=== PATIENT | female | born 1990 | race Caucasian/White ===

== ENCOUNTER 2017-01-03 20:59 | Emergency (ER) | payer MEDICARE, MEDICAID ==
[2017-01-03 21:07] VITALS: BP 129/72; PULSE 68; RESP 16; TEMP 97.2; O2SAT 99
[2017-01-03 21:45] LABS: BASO % 0.7 % (0.0-2.0); EOS # 0.2 K/uL (0.0-0.7); EOS % 5.5 % (0.0-4.0); HEMATOCRIT 37.7 % (34.0-47.0); LYMPH # 1.6 K/uL (1.0-4.3); LYMPH % 37.4 % (20.0-40.0); MEAN CELL VOLUME 90.5 fL (81.0-99.0); MEAN CORPUSCULAR HEMOGLOBIN 29.8 pg (27.0-31.0); MEAN PLATELET VOLUME 11.8 fL (7.2-11.7); MONO # 0.4 K/uL (0.0-0.8); MONO % 9.4 % (0.0-10.0); RED CELL DISTRIBUTION WIDTH 13.1 % (11.5-14.5); WHITE BLOOD COUNT 4.3 K/uL (4.8-10.8)
[2017-01-03 21:59] LABS: CHLORIDE 101 mmol/L (98-107); POTASSIUM 3.8 mmol/L (3.6-5.2); SODIUM 141 mmol/L (132-148)
[2017-01-03 22:01] LABS: ALB/GLOB RATIO 1.6 (1.0-2.1); ALKALINE PHOSPHATASE 43 U/L (38-126); AST/SGOT 31 U/L (14-36); BILIRUBIN,TOTAL 0.5 mg/dL (0.2-1.3); CARBON DIOXIDE 23 mmol/L (22-30); GFR AFRICAN-AMERICAN > 60
[2017-01-03 22:02] LABS: ALCOHOL SERUM < 10 mg/dl (0-10); ALT/SGPT 16 U/L (9-52); BLOOD UREA NITROGEN 10 mg/dL (7-17); CALCIUM 8.2 mg/dl (8.6-10.4); GLUCOSE,RANDOM 93 mg/dL (65-105)
--- NOTE | 2017-01-03 22:04 | C.PDOC ---
History Of Present Illness 26 year old female with a history of alcohol abuse, Bipolar disorder, and depression, and presents to the ED via EMS due to public intoxication. Patient was found unconscious and supine and later admits to smoking PCP. Time Seen by Provider: 01/03/17 21:14 Chief Complaint (Nursing): Substance Abuse History Per: Patient, EMS Onset/Duration Of Symptoms: Hrs Current Symptoms Are (Timing): Still Present Modifying Factor(s): Other (PCP) Past Medical History Reviewed: Historical Data, Nursing Documentation, Vital Signs Vital Signs: Last Vital Signs Temp 97.2 F L 01/03/17 21:03 Pulse 68 01/03/17 21:03 Resp 16 01/03/17 21:03 BP 129/72 01/03/17 21:03 Pulse Ox 99 01/03/17 22:07 - Medical History PMH: Anemia, Anxiety, Arthritis, Asthma, Bipolar Disorder, Depression, Hypothyroidism - [facility] Procedures OTHER SKIN & SUBQ I D (03/15/15) Family History: States: Unknown Family Hx - Social History Hx Tobacco Use: Yes Hx Alcohol Use: Yes Hx Substance Use: Yes - Immunization History Hx Tetanus Toxoid Vaccination: Yes Hx Influenza Vaccination: Yes Hx Pneumococcal Vaccination: No Review Of Systems Except As Marked, All Systems Reviewed And Found Negative. Constitutional: Negative for: Fever, Chills Cardiovascular: Negative for: Chest Pain Respiratory: Negative for: Shortness of Breath Physical Exam - Physical Exam Appears: Non-toxic, No Acute Distress, Confused Skin: Normal Color, Warm, Dry Head: Atraumatic, Normacephalic, No Abrasion, No Laceration Eye(s): bilateral: Normal Inspection Oral Mucosa: Moist Neck: Supple Chest: Symmetrical Cardiovascular: Rhythm Regular Respiratory: Normal Breath Sounds, No Accessory Muscle Use Extremity: Normal ROM Neurological/Psych: Other (+Awake, distant, disoriented.) ED Course And Treatment - Laboratory Results Result Diagrams: 01/03/17 21:33 01/03/17 21:33 Lab Interpretation: Normal (etoh neg.) O2 Sat by Pulse Oximetry: 99 (Room air) Pulse Ox Interpretation: Normal Progress Note: Blood work ordered and reviewed. pt never provided urine sample Reevaluation Time: 22:23 Reassessment Condition: Improved (ambulatory, packed her gear and eloped from Ed with stable gait) Medical Decision Making Medical Decision Making: admitted PCP abuse. Disposition Doctor Will See Patient In The: Office Counseled Patient/Family Regarding: Studies Performed - Disposition Disposition: ELOPEMENT - ER ONLY Disposition Time: 22:23 Condition: GOOD - Clinical Impression Clinical Impression: Phencyclidine abuse - Scribe Statement The provider has reviewed the documentation as recorded by the Scribe Juani Lee. Provider Attestation: All medical record entries made by the Scribe were at my direction and personally dictated by me. I have reviewed the chart and agree that the record accurately reflects my personal performance of the history, physical exam, medical decision making, and the department course for this patient. I have also personally directed, reviewed, and agree with the discharge instructions and disposition.
== END 2017-01-03 21:35 | disposition left against medical advice (07) ==
LOC: C.ER 20:59
DX: F16.10 Hallucinogen abuse, uncomplicated (principal)
CPT/HCPCS: 80053; 85025; 99282; G0480

== ENCOUNTER 2017-01-22 05:17 | Emergency (ER) | payer MEDICARE, MEDICAID ==
[2017-01-22 05:26] VITALS: BP 115/75; PULSE 81; RESP 16; TEMP 97.8; O2SAT 99
== END 2017-01-22 06:19 | disposition left against medical advice (07) ==
LOC: C.ER 05:17
DX: F19.10 Other psychoactive substance abuse, uncomplicated (principal); Z02.9 Encounter for administrative examinations, unspecified
CPT/HCPCS: 82948; LWBS0

== ENCOUNTER 2017-02-15 03:18 | Observation (INO) | payer MEDICARE, MEDICAID ==
[2017-02-15 03:32] VITALS: RESP 20; O2SAT 99
[2017-02-15 04:20] VITALS: BP 109/70; PULSE 82; TEMP 97.9
--- NOTE | 2017-02-15 04:20 | C.PDOC ---
History Of Present Illness Patient is a 26 year old female brought in by EMS for acute ETOH intoxication. Patient attempted to get into the passenger seat of a police vehicle as per EMS. Patient has no physical complaints at this time. Time Seen by Provider: 02/15/17 03:40 Chief Complaint (Nursing): Substance Abuse History Per: Patient History/Exam Limitations: no limitations Onset/Duration Of Symptoms: Hrs Current Symptoms Are (Timing): Still Present Suicide/Self Injury Attempted (Context): None Modifying Factor(s): Alcohol Associated Symptoms: denies: Depression, Suicidal Thoughts, Suicidal Plan Involuntary Hold By: None Recent travel outside of the [place]: No Past Medical History Reviewed: Historical Data, Nursing Documentation, Vital Signs Vital Signs: Last Vital Signs Temp 97.9 F 02/15/17 04:19 Pulse 82 02/15/17 04:19 Resp 20 02/15/17 04:19 BP 109/70 02/15/17 04:19 Pulse Ox 99 02/15/17 05:32 - Medical History PMH: Anemia, Anxiety, Arthritis, Asthma, Bipolar Disorder, Depression, Hypothyroidism Surgical History: No Surg Hx - [facility] Procedures OTHER SKIN & SUBQ I D (03/15/15) Family History: States: Unknown Family Hx - Social History Hx Tobacco Use: Yes Hx Alcohol Use: Yes Hx Substance Use: Yes - Immunization History Hx Tetanus Toxoid Vaccination: Yes Hx Influenza Vaccination: Yes Hx Pneumococcal Vaccination: No Review Of Systems Constitutional: Negative for: Fever, Chills Gastrointestinal: Negative for: Nausea, Vomiting, Diarrhea Neurological: Positive for: Other (ETOH intoxication) Physical Exam - Physical Exam Appears: Well, Non-toxic, Other (ETOH on breath. Slurred speech.) Skin: Normal Color, Warm, Dry Head: Atraumatic, Normacephalic Oral Mucosa: Moist Chest: Symmetrical, No Tenderness Cardiovascular: Rhythm Regular, No Murmur Respiratory: Normal Breath Sounds, No Rales, No Rhonchi, No Wheezing Gastrointestinal/Abdominal: Soft, No Tenderness Neurological/Psych: Oriented x3, Normal Speech, Normal Cognition ED Course And Treatment O2 Sat by Pulse Oximetry: 99 (Room air) Pulse Ox Interpretation: Normal ED OBSERVATION Date of observation admission: 02/15/17 Time of observation admission: 04:19 - Observation admission statement Patient is being placed in observation because:: ETOH intoxication - Goals of Observation Goals of observation are:: To sober up in the safe place - Progress Note Progress Note: 02/15/17 05:15 Patient is alert and oriented, ambulatory in ED and requesting to be d/c home. Disposition - Disposition Disposition: HOME/ ROUTINE Disposition Time: 05:20 Condition: IMPROVED - Clinical Impression Clinical Impression: Alcohol intoxication - Scribe Statement The provider has reviewed the documentation as recorded by the Scribe Fausto Kee All medical record entries made by the Vicentaibe were at my direction and personally dictated by me. I have reviewed the chart and agree that the record accurately reflects my personal performance of the history, physical exam, medical decision making, and the department course for this patient. I have also personally directed, reviewed, and agree with the discharge instructions and disposition.
== END 2017-02-15 05:21 | disposition home or self-care (01) ==
LOC: C.ER 03:18 → C.9OBSV 04:20
PROVIDERS: ADMIT Emergency Medicine; ATTEND Emergency Medicine
DX: F10.129 Alcohol abuse with intoxication, unspecified (principal); F10.120 Alcohol abuse with intoxication, uncomplicated; E03.9 Hypothyroidism, unspecified; J45.909 Unspecified asthma, uncomplicated; Z87.891 Personal history of nicotine dependence; Y90.9 Presence of alcohol in blood, level not specified
CPT/HCPCS: 99283; G0378

== ENCOUNTER 2018-05-03 07:59 | Emergency (ER) | payer MEDICARE, MEDICAID ==
--- NOTE | 2018-05-03 08:37 | C.PDOC ---
History Of Present Illness 28 y/o female presents to ED for evaluation of lower abdominal pain radiating to back for the last 2 days. Notes pain with urination. Denies n/v/d, vaginal bleeding, vaginal discharge, fever, or chills. LMP: 1.5 weeks ago. Time Seen by Provider: 05/03/18 08:15 Chief Complaint (Nursing): Abdominal Pain History Per: Patient History/Exam Limitations: no limitations Past Medical History Reviewed: Historical Data, Nursing Documentation, Vital Signs Vital Signs: Last Vital Signs Temp 98.4 F 05/03/18 08:04 Pulse 84 05/03/18 08:04 Resp 16 05/03/18 08:04 BP 110/74 05/03/18 08:04 Pulse Ox 99 05/03/18 11:58 - Medical History PMH: Anemia, Anxiety, Arthritis, Asthma, Bipolar Disorder, Depression, Hypothyroidism, Schizophrenia - [facility] Procedures OTHER SKIN & SUBQ I D (03/15/15) Family History: States: Unknown Family Hx - Social History Hx Tobacco Use: Yes Hx Alcohol Use: Yes Hx Substance Use: Yes - Immunization History Hx Tetanus Toxoid Vaccination: Yes Hx Influenza Vaccination: Yes Hx Pneumococcal Vaccination: No Review Of Systems Except As Marked, All Systems Reviewed And Found Negative. Constitutional: Negative for: Fever, Chills Gastrointestinal: Positive for: Abdominal Pain. Negative for: Nausea, Vomiting , Diarrhea, Constipation Genitourinary: Positive for: Dysuria. Negative for: Frequency, Hematuria, Vaginal Discharge, Vaginal Bleeding Musculoskeletal: Positive for: Back Pain Physical Exam - Physical Exam Appears: Non-toxic, No Acute Distress Skin: Normal Color, Warm, Dry Head: Atraumatic, Normacephalic Eye(s): bilateral: Normal Inspection Oral Mucosa: Moist Neck: Normal ROM, Supple Cardiovascular: Rhythm Regular Respiratory: Normal Breath Sounds, No Rales, No Rhonchi, No Wheezing Gastrointestinal/Abdominal: Bowel Sounds, Soft, Tenderness (LLQ, RLQ), No Guarding, No Rebound Back: No CVA Tenderness Extremity: Normal ROM Neurological/Psych: Oriented x3, Normal Speech ED Course And Treatment - Laboratory Results Result Diagrams: 05/03/18 08:40 05/03/18 08:40 O2 Sat by Pulse Oximetry: 99 (RA) Pulse Ox Interpretation: Normal Medical Decision Making Medical Decision Making: Plan: Abd Pelvis CT Blood work Urinalysis Pepcid, Toradol 1158 - imaging negative. Patient with urinary symptoms. will tx for uti and discharge home to follow up within 2 days Disposition - Disposition Referrals: [facility] [Outside] Disposition: HOME/ ROUTINE Disposition Time: 11:59 Condition: STABLE Additional Instructions: follow up with your doctor or medical clinic within 2 days call to make an appointment continue your home medications return to ER if symptoms worsens or progress Prescriptions: Naproxen [Naprosyn] 500 mg PO BID PRN #16 tab PRN Reason: Pain, Moderate (4-7) Phenazopyridine HCl [Pyridium] 200 mg PO TID PRN #6 tablet PRN Reason: Pain, Moderate (4-7) Sulfamethoxazole/Trimethoprim [Bactrim DS 800 mg-160 mg] 1 tab PO BID #14 tab Instructions: Urinary Tract Infections in Adults, Acute Abdomen (Belly Pain), Adult (DC) Forms: [facility] (Tongan), General Discharge Instructions - Clinical Impression Clinical Impression: Abdominal pain, UTI (urinary tract infection) - Scribe Statement The provider has reviewed the documentation as recorded by the Scribe KP All medical record entries made by the Scribe were at my direction and personally dictated by me. I have reviewed the chart and agree that the record accurately reflects my personal performance of the history, physical exam, medical decision making, and the department course for this patient. I have also personally directed, reviewed, and agree with the discharge instructions and disposition.
[2018-05-03 08:45] LABS: BASO % 0.8 % (0.0-2.0); EOS # 0.2 K/uL (0.0-0.7); EOS % 3.5 % (0.0-4.0); HEMOGLOBIN 11.9 g/dL (11.0-16.0); LYMPH # 1.7 K/uL (1.0-4.3); LYMPH % 30.8 % (20.0-40.0); MEAN CELL VOLUME 90.5 fL (81.0-99.0); MEAN CORPUSCULAR HEMOGLOBIN 30.8 pg (27.0-31.0); MEAN PLATELET VOLUME 10.9 fL (7.2-11.7); MONO # 0.6 K/uL (0.0-0.8); MONO % 10.6 % (0.0-10.0); NEUT % 54.3 % (50.0-75.0); RBC 3.86 Mil/uL (3.80-5.20); RED CELL DISTRIBUTION WIDTH 13.3 % (11.5-14.5); WHITE BLOOD COUNT 5.6 K/uL (4.8-10.8)
[2018-05-03 08:50] LABS: HCG,QUALITATIVE URINE NEGATIVE (NEGATIVE)
[2018-05-03 08:55] LABS: SQUAMOUS EPITHIAL 6 /hpf (0-5); URINE BACTERIA RARE (<OCC); URINE BILIRUBIN NEGATIVE (NEGATIVE); URINE BLOOD NEGATIVE (NEGATIVE); URINE CLARITY Hazy (Clear); URINE COLOR Yellow (YELLOW); URINE GLUCOSE (UA) NORMAL (Normal); URINE LEUKOCYTE ESTERASE TRACE Leu/uL (Negative); URINE PROTEIN NEGATIVE (NEGATIVE); URINE UROBILINOGEN NORMAL mg/dL (0.2-1.0)
[2018-05-03 09:09] LABS: ALB/GLOB RATIO 1.4 (1.0-2.1); ALBUMIN 4.1 g/dL (3.5-5.0); ALT/SGPT 18 U/L (9-52); AST/SGOT 33 U/L (14-36); BLOOD UREA NITROGEN 12 mg/dL (7-17); CALCIUM 8.9 mg/dl (8.6-10.4); GFR AFRICAN-AMERICAN > 60; GFR NON-AFRICAN AMERICAN > 60; LIPASE 49 U/L (23-300)
[2018-05-03] MEDS ORDERED: cefTRIAXone IV 1 gm in Dextros 50 ML IVPB ONE (09:29)
--- NOTE | 2018-05-03 10:51 | CT ---
Date of service: 05/03/2018 PROCEDURE: CT Abdomen and Pelvis without intravenous contrast HISTORY: ABD PAIN COMPARISON: None. TECHNIQUE: Helical CT of the abdomen and pelvis was performed without oral or intravenous contrast as per referring physician request. Contrast dose: None Radiation dose: Total exam DLP = 479.72 mGy-cm. This CT exam was performed using one or more of the following dose reduction techniques: Automated exposure control, adjustment of the mA and/or kV according to patient size, and/or use of iterative reconstruction technique. FINDINGS: LOWER THORAX: Unremarkable. LIVER: Unremarkable. No gross lesion or ductal dilatation. GALLBLADDER AND BILE DUCTS: Unremarkable. PANCREAS: Unremarkable. No gross lesion or ductal dilatation. SPLEEN: Unremarkable. ADRENALS: Unremarkable. No mass. KIDNEYS AND URETERS: There is no radiodense urolithiasis, obstructive uropathy or perinephric reaction bilaterally. Kidneys appear homogeneous in overall density throughout. Urinary bladder appears unremarkable as well. VASCULATURE: Unremarkable. No aortic aneurysm. BOWEL: Unremarkable. No obstruction. No gross mural thickening. APPENDIX: No acute appendiceal changes. A small appendicular is seen at the mid segment appendix. PERITONEUM: Unremarkable. No free fluid. No free air. LYMPH NODES: Unremarkable. No enlarged lymph nodes. BLADDER: Unremarkable. REPRODUCTIVE: Unremarkable. BONES: No acute fracture. OTHER FINDINGS: None. IMPRESSION: There is no radiodense urolithiasis, obstructive uropathy or perinephric reaction bilaterally. Kidneys appear homogeneous in overall density throughout. Urinary bladder appears unremarkable as well. Further evaluation the remaining abdominal and pelvic viscera is suboptimal due to lack of oral and intravenous contrast. No suspicious acute findings are appreciable as imaged.
--- NOTE | 2018-05-03 11:56 | US ---
Date of service: 05/03/2018 HISTORY: abd. pain COMPARISON: None available. TECHNIQUE: Transabdominal and transvaginal pelvic ultrasound was performed with longitudinal and transverse images submitted for interpretation. FINDINGS: UTERUS: Measures 8.3 x 4.5 x 6.0 cm. Uterus is somewhat prominent appearing, anteverted without focal myometrial or endometrial mass appreciable grossly. ENDOMETRIUM: Measures 8.2 mm in diameter. Trilaminar in appearance. No focal abnormality identified. CERVIX: Normal cervical length of 3.2 cm without focal pathology or related. RIGHT OVARY: Measures 3.3 x 1.7 x 3.0 cm. No solid mass. Normal flow. LEFT OVARY: Measures 3.3 x 1.9 x 3.2 cm. No solid mass. Normal flow. FREE FLUID: No significant free fluid noted. OTHER FINDINGS: None. IMPRESSION: Unremarkable pelvic ultrasound.
[2018-05-03 12:11] VITALS: BP 105/68; PULSE 56; RESP 20; TEMP 98.9; O2SAT 100
== END 2018-05-03 12:11 | disposition home or self-care (01) ==
LOC: C.ER 07:59
DX: N39.0 Urinary tract infection, site not specified (principal); R10.9 Unspecified abdominal pain; D64.9 Anemia, unspecified
CPT/HCPCS: 74176; 76830; 76856; 80053; 81001; 83690; 84703; 85025; 87491; 87591; 96365; 96375; 99285; J0696; J1885

== ENCOUNTER 2018-12-09 21:21 | Emergency (ER) | payer MEDICARE, MEDICAID | END 2018-12-10 00:04 | disposition home or self-care (01) | LOC: C.ER 12-10 00:04 ==